=== PATIENT | female | born 2000 | race Caucasian/White ===

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

== ENCOUNTER → 2021-01-10 | Outpatient (CLI) | payer OTHER ==
--- NOTE | 2021-01-10 16:17 | Diagnostic Imaging Report ---
PROCEDURE: US PELVIC (NON OB) TECHNIQUE: Multiple real-time grayscale images were obtained over the pelvis in various projections transabdominally. In addition, limited pelvic Doppler was performed. INDICATION: Pelvic pain. Uterus is anteverted measuring 7.8 x 3.6 x 5.8 cm. IUD appears appropriately centered in the endometrial canal. No myometrial masses detected. Endometrium is 5 mm in thickness. Right ovary measures 3.7 x 2.9 x 2.1 cm left ovary measures 2.4 x 1.3 x 2.0 cm. There is blood flow to both ovaries. Small amount of free fluid is present adjacent to the right ovary. IMPRESSION: 1. IUD is appropriately centered in the endometrial canal. 2. Study is otherwise unremarkable. Dictated by: Dictated on workstation # [id number]
== END ==
LOC: RAD 14:54
PROVIDERS: ATTEND Physician Assistant
DX: R10.2 Pelvic and perineal pain (principal); Z97.5 Presence of (intrauterine) contraceptive device
CPT/HCPCS: 76856